=== PATIENT | female | born 1990 | race Caucasian/White ===

== ENCOUNTER 2018-12-19 18:17 | Emergency (ER) | payer MEDICAID ==
[~2018-12-19] VITALS: Ht 170.2 cm; Wt 61.4 kg
[2018-12-19 18:27] VITALS: BP 109/58
== END 2018-12-19 18:48 ==
LOC: ER 18:18
DX: S80.212A Abrasion, left knee, initial encounter (principal); S80.211A Abrasion, right knee, initial encounter; S90.812A Abrasion, left foot, initial encounter; Y04.8XXA Assault by other bodily force, initial encounter; Y93.89 Activity, other specified; Y92.89 Other specified places as the place of occurrence of the external cause; Y99.8 Other external cause status
CPT/HCPCS: 99283

== ENCOUNTER 2019-11-24 15:34 | Emergency (ER) | payer MEDICAID ==
[~2019-11-24] VITALS: Ht 170.2 cm; Wt 42.3 kg
[~2019-11-24 15:34] MED LIST: LIDOcaine 1% W/epiNEPHrine 1:100,000 20ml vial ONE
[2019-11-24] MEDS ORDERED: DOXY100C76 PO (16:57)
[2019-11-24] MEDS ORDERED: CEPH250T PO (16:57)
[2019-11-24 17:53] VITALS: BP 130/80
== END 2019-11-24 17:43 | disposition home or self-care (01) ==
LOC: ER 15:34
DX: L02.811 Cutaneous abscess of head [any part, except face] (principal); Z86.14 Personal history of Methicillin resistant Staphylococcus aureus infection; Z91.040 Latex allergy status; Z88.1 Allergy status to other antibiotic agents; Z88.8 Allergy status to other drugs, medicaments and biological substances
CPT/HCPCS: 10060; 99283

== ENCOUNTER 2020-05-21 19:09 | Emergency (ER) | payer MEDICAID ==
[~2020-05-21] VITALS: Ht 170.2 cm; Wt 52.1 kg
[2020-05-21 19:19] VITALS: BP 113/75
[2020-05-21 20:01] LABS: CLARITY,URINE CLEAR (Clear); COLOR,URINE YELLOW (Yellow); GLUCOSE, URINE NEGATIVE (Neg); KETONES,URINE TRACE mg/dl (Neg); LEUKOCYTE ESTERASE ,URINE SMALL (Neg); NITRITES, URINE NEGATIVE (Neg); OCCULT BLOOD,URINE NEGATIVE (Neg); PH,URINE 5.5 (4.8-8.0); PROTEIN,URINE NEGATIVE (Neg); UA COLLECTION TYPE CLN CATCH MIDSTREAM
[2020-05-21 20:02] LABS: URINE HCG POSITIVE (NEG)
[2020-05-21 20:14] LABS: WBC,URINE 50-100 /HPF (0-4)
[2020-05-21 20:15] LABS: BACTERIA,URINE 2+ /HPF (Neg); RBC,URINE NONE SEEN /HPF (0-2)
[2020-05-21 20:16] LABS: CAL OXALATE CRYSTALS 2+ /HPF (NEGATIVE); SQUAMOUS EPITHELIAL CELL,UR MANY /LPF (FEW)
[2020-05-21] MEDS ORDERED: PENICILLIN G BENZATHINE 2,400,000 UNIT/4 ML SYRINGE IM STA (20:32)
[2020-05-21] MEDS ORDERED: CefTRIAXone 1000mg IM Kit (w/lidocaine diluent) IM STA (20:32)
[2020-05-21] MEDS ORDERED: metroNIDAZOLE 500mg tablet PO ONE (20:35)
[2020-05-21 20:51] LABS: CLARITY,URINE CLEAR (Clear); COLOR,URINE YELLOW (Yellow); GLUCOSE, URINE NEGATIVE (Neg); KETONES,URINE NEGATIVE (Neg); LEUKOCYTE ESTERASE ,URINE SMALL (Neg); NITRITES, URINE NEGATIVE (Neg); OCCULT BLOOD,URINE NEGATIVE (Neg); PROTEIN,URINE NEGATIVE (Neg); UROBILINOGEN,URINE 0.2 E.U/dL (0.2-1.0)
[2020-05-21 20:52] LABS: UA COLLECTION TYPE NON-SPECIFIED
[2020-05-21 20:57] LABS: RBC,URINE 0-2 /HPF (0-2)
[2020-05-21 20:58] LABS: BACTERIA,URINE 2+ /HPF (Neg); MUCUS STRANDS MODERATE /LPF (Neg); SQUAMOUS EPITHELIAL CELL,UR FEW /LPF (FEW)
[2020-05-21 20:59] LABS: CAL OXALATE CRYSTALS 2+ /HPF (NEGATIVE); WBC,URINE 50-100 /HPF (0-4)
[2020-05-21] MEDS ORDERED: CefTRIAXone 1000mg IM Kit (w/lidocaine diluent) IM ONE (21:05)
== END 2020-05-21 21:47 | disposition home or self-care (01) ==
LOC: ER 19:09
DX: A64 Unspecified sexually transmitted disease (principal); Z34.90 Encounter for supervision of normal pregnancy, unspecified, unspecified trimester; Z86.14 Personal history of Methicillin resistant Staphylococcus aureus infection; Z91.040 Latex allergy status; Z88.2 Allergy status to sulfonamides; Z88.8 Allergy status to other drugs, medicaments and biological substances
CPT/HCPCS: 36415; 81001; 81025; 86592; 87088; 87491; 87591; 96372; 99284; J0561; J0696

== ENCOUNTER 2023-04-15 21:22 | Emergency (ER) | payer MEDICAID ==
[~2023-04-15] VITALS: Ht 170.2 cm; Wt 50.0 kg
[2023-04-15 21:25] VITALS: TEMP 98.6
[2023-04-15] MEDS ORDERED: ketorolac trometh inj. 60 MG/2 ML VIAL IM ONE (22:35)
[2023-04-15] MEDS ORDERED: NAPR-56 PO (22:36)
[2023-04-15 22:41] VITALS: BP 136/70; PULSE 85; RESP 18; O2SAT 98
== END 2023-04-15 22:42 | disposition home or self-care (01) ==
LOC: ER 21:22
DX: S29.011A Strain of muscle and tendon of front wall of thorax, initial encounter (principal); X58.XXXA Exposure to other specified factors, initial encounter; Y93.89 Activity, other specified; Y92.89 Other specified places as the place of occurrence of the external cause; Y99.8 Other external cause status
CPT/HCPCS: 71100; 96372; 99283; J1885

== ENCOUNTER 2024-04-09 19:27 | Emergency (ER) | payer MEDICAID ==
[~2024-04-09] VITALS: Ht 170.2 cm; Wt 60.7 kg
[~2024-04-09 19:27] MED LIST changes: -LIDOcaine 1% W/epiNEPHrine 1:100,000 20ml vial ONE; +MELO-100 PO
[2024-04-09 19:29] VITALS: BP 119/71; PULSE 98; RESP 18; O2SAT 100
[2024-04-09 22:20] LABS: BILIRUBIN,URINE NEGATIVE (Neg); CLARITY,URINE CLEAR (Clear); COLOR,URINE YELLOW (Yellow); GLUCOSE, URINE NEGATIVE (Neg); KETONES,URINE NEGATIVE (Neg); LEUKOCYTE ESTERASE ,URINE NEGATIVE (Neg); NITRITES, URINE NEGATIVE (Neg); OCCULT BLOOD,URINE MODERATE (Neg); PH,URINE 6.5 (4.8-8.0); PROTEIN,URINE NEGATIVE (Neg); UROBILINOGEN,URINE 0.2 E.U/dL (0.2-1.0)
[2024-04-09 22:23] LABS: URINE HCG NEGATIVE (NEG)
[2024-04-09 23:02] LABS: WBC,URINE NONE SEEN /HPF (0-4)
[2024-04-09 23:03] VITALS: TEMP 98.7
[2024-04-09 23:03] LABS: BACTERIA,URINE FEW /HPF (Neg); SQUAMOUS EPITHELIAL CELL,UR FEW /LPF (FEW)
[2024-04-09 23:04] LABS: UA COLLECTION TYPE VOIDED
== END 2024-04-09 23:04 | disposition home or self-care (01) ==
LOC: ER 19:27
DX: N93.9 Abnormal uterine and vaginal bleeding, unspecified (principal); N89.8 Other specified noninflammatory disorders of vagina; Z91.040 Latex allergy status; Z91.018 Allergy to other foods; Z88.8 Allergy status to other drugs, medicaments and biological substances; Z79.899 Other long term (current) drug therapy; Z88.1 Allergy status to other antibiotic agents; Z88.2 Allergy status to sulfonamides
CPT/HCPCS: 81001; 81025; 87070; 87210; 99284; Q0112